=== PATIENT | male | born 1960 | race Caucasian/White ===

== ENCOUNTER 2018-03-16 08:11 | Emergency (ER) | END 2018-03-16 10:16 | disposition home or self-care (01) ==

== ENCOUNTER 2018-03-18 12:23 | Emergency (ER) | END 2018-03-18 13:50 | disposition home or self-care (01) ==

== ENCOUNTER 2018-03-27 13:40 | Emergency (ER) | END 2018-03-27 14:47 | disposition home or self-care (01) ==